=== PATIENT | male | born 1995 | race Caucasian/White ===

== ENCOUNTER 2020-12-15 02:44 | Emergency (ER) | payer OTHER ==
[~2020-12-15] VITALS: Ht 172.7 cm; Wt 87.5 kg
[2020-12-15] MEDS ORDERED: methylPREDNISolone SOD SUCC 125 MG/2 ML VL IV ONE (03:30)
[2020-12-15 03:37] VITALS: BP 128/87
== END 2020-12-15 04:32 | disposition home or self-care (01) ==
LOC: EDBD 02:44 → ER 02:44
DX: J45.909 Unspecified asthma, uncomplicated (principal); R07.89 Other chest pain; F41.9 Anxiety disorder, unspecified; F43.0 Acute stress reaction; Z90.89 Acquired absence of other organs
CPT/HCPCS: 96374; 99283; J2930; 93005

== ENCOUNTER 2021-03-27 00:41 | Emergency (ER) | payer OTHER ==
[~2021-03-27] VITALS: Ht 170.2 cm; Wt 83.9 kg
[2021-03-27 00:41] VITALS: BP 154/85
== END 2021-03-27 04:06 | disposition left against medical advice (07) ==
LOC: ER 00:41
DX: M54.59 Other low back pain (principal); Z53.21 Procedure and treatment not carried out due to patient leaving prior to being seen by health care provider
CPT/HCPCS: 72100